=== PATIENT | male | born 1970 | race American Indian/Alaskan Native ===

== ENCOUNTER 2019-07-21 08:39 | Inpatient (IN) | payer MEDICARE ==
[2019-07-21] MEDS ORDERED: ZOFRAN IV ONE (09:18)
[2019-07-21] MEDS ORDERED: DILAUDID IV ONE ×2 (09:18→09:58)
[2019-07-21] MEDS ORDERED: LASIX IV ONE (09:19)
[2019-07-21] MEDS ORDERED: DILAUDID ONE (09:19)
[2019-07-21] MEDS ORDERED: NITRO-BID 2% TP ONE (09:19)
[2019-07-21] MEDS ORDERED: ZOFRAN ONE (09:19)
--- NOTE | 2019-07-21 09:28 | XRay Report ---
CHEST 1 VIEW INDICATION: Chest Pain. COMPARISON: None. FINDINGS: Support devices: None. Heart: Mild cardiomegaly status post previous median sternotomy. Lungs/Pleura: Mild vascular congestion with more localized infiltrate at the right lung base. Additional findings: None. IMPRESSION: 1. Mild vascular congestion. 2. Localized infiltrate right base medially suspicious for pneumonia. Signer Name: Jose Alberto Maurice MD Signed: 07/21/2019 9:24 AM Workstation Name: [id number]
[2019-07-21 09:30] LABS: Basophils # (Auto) 0.1 K/mm3 (0.0-0.1); Basophils % (Auto) 0.5 % (0.0-1.8); Eosinophils # (Auto) 0.2 K/mm3 (0.0-0.4); Eosinophils % (Auto) 1.8 % (0.0-4.3); Hematocrit 37.8 % (35.5-45.6); Hemoglobin 12.4 gm/dl (11.8-15.2); Lymphocytes # (Auto) 1.3 K/mm3 (1.2-5.4); Lymphocytes % (Auto) 10.6 % (13.4-35.0); Mean Corpuscular HGB Conc 33 % (32-34); Mean Corpuscular Volume 89 fl (84-94); Monocytes # (Auto) 0.6 K/mm3 (0.0-0.8); Monocytes % (Auto) 4.7 % (0.0-7.3); Platelet Count 205 K/mm3 (140-440); Red Blood Count 4.25 M/mm3 (3.65-5.03); Red Cell Distribution Width 15.9 % (13.2-15.2)
[2019-07-21 09:48] LABS: Alanine Aminotransferase 31 units/L (7-56); Albumin 3.7 g/dL (3.9-5); BUN/Creatinine Ratio 14; Blood Urea Nitrogen 13 mg/dL (9-20); Calcium 9.3 mg/dL (8.4-10.2); Hemolysis Index 20
[2019-07-21] MEDS ORDERED: LEVAQUIN 750MG/150ML 750 MG/150 ML BAG IV ONE (10:00)
[2019-07-21 10:02] LABS: Chol/HDL Ratio 2.26 %
--- NOTE | 2019-07-21 10:24 | Emergency Department Report ---
ED Chest Pain HPI - General Chief Complaint: Chest Pain Stated Complaint: CHEST PAIN Time Seen by Provider: 07/21/19 09:12 Source: EMS Mode of arrival: Stretcher Limitations: No Limitations - History of Present Illness Initial Comments: 49-year-old male with a past medical history diabetes, CABG 4 performed on June 25, hypertension, and elevated cholesterol presents to the Hospital complains of left-sided chest pain started last night and worse this morning. Pain is constant, sharp, worse with palpation, movement, and deep inspiration. Positive associated shortness of breath and nonproductive cough since last night. Patient has been taking his medications as instructed. Patient presented to [facility] and was subsequently transferred to [facility] his CABG surgery. 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 Severity scale (0 -10): 6 - Related Data Home Medications Medication Instructions Recorded Confirmed Last Taken Atorvastatin Calcium [Lipitor] 80 mg PO QDAY 07/21/19 07/21/19 07/21/19 Carvedilol [Coreg] 12.5 mg PO BID 07/21/19 07/21/19 07/21/19 Carvedilol [Coreg] 25 mg PO BID 07/21/19 07/21/19 07/21/19 Clopidogrel [Plavix] 75 mg PO QDAY 07/21/19 07/21/19 07/21/19 Colchicine 0.6 mg PO BID 07/21/19 07/21/19 07/21/19 Isosorbide Mononitrate 30 mg PO QDAY 07/21/19 07/21/19 07/21/19 Lisinopril [Zestril TAB] 10 mg PO QDAY 07/21/19 07/21/19 07/21/19 NIFEdipine [Nifedipine ER] 90 mg PO QDAY 07/21/19 07/21/19 07/21/19 Pantoprazole Sodium [Protonix] 40 mg PO BIDAC 07/21/19 07/21/19 07/21/19 Allergies Allergy/AdvReac Type Severity Reaction Status Date / Time acetaminophen [From Tylenol] Allergy Unknown Verified 07/21/19 08:57 aspirin Allergy Unknown Verified 07/21/19 08:57 morphine Allergy Unknown Verified 07/21/19 08:57 Heart Score - HEART Score History: Slightly suspicious EKG: Non-specific Age: 45-65 Risk factors: > 3 risk factors or hx of atherosclerotic disease Troponin: 1-3x normal limit HEART Score: 5 ED Review of Systems ROS: Stated complaint: CHEST PAIN Other details as noted in HPI Comment: All other systems reviewed and negative ED Past Medical Hx - Past Medical History Previous Medical History?: Yes Hx Hypertension: Yes Hx CVA: Yes (x2) Hx Heart Attack/AMI: Yes (2016, 2018, CABG 2018) Hx Diabetes: Yes (TYPE 2) Additional medical history: HIGH CHOLESTEROL - Surgical History Past Surgical History?: Yes Additional Surgical History: QUADRUPLE BYPASS JUN 25 2019 - Social History Smoking Status: Never Smoker Substance Use Type: None - Medications Home Medications: Home Medications Medication Instructions Recorded Confirmed Last Taken Type Atorvastatin Calcium [Lipitor] 80 mg PO QDAY 07/21/19 07/21/19 07/21/19 History Carvedilol [Coreg] 12.5 mg PO BID 07/21/19 07/21/19 07/21/19 History Carvedilol [Coreg] 25 mg PO BID 07/21/19 07/21/19 07/21/19 History Clopidogrel [Plavix] 75 mg PO QDAY 07/21/19 07/21/19 07/21/19 History Colchicine 0.6 mg PO BID 07/21/19 07/21/19 07/21/19 History Isosorbide Mononitrate 30 mg PO QDAY 07/21/19 07/21/19 07/21/19 History Lisinopril [Zestril TAB] 10 mg PO QDAY 07/21/19 07/21/19 07/21/19 History NIFEdipine [Nifedipine ER] 90 mg PO QDAY 07/21/19 07/21/19 07/21/19 History Pantoprazole Sodium [Protonix] 40 mg PO BIDAC 07/21/19 07/21/19 07/21/19 History ED Physical Exam - General Limitations: No Limitations - Other Other exam information: Normal: No acute distress Head: Atraumatic Eyes: Normal appearance, pupils equally reactive to light, extraocular movements intact ENT: Moist mucous membranes Neck: Normal appearance, no midline cervical tenderness, no meningismus Chest: Diminished breath sounds bilaterally without wheezing Cardiovascular: Regular rate and rhythm, midline sternotomy scar without erythema. Left-sided reproducible chest wall tenderness. Abdomen: Soft, nontender, nondistended, no rebound or guarding, normal bowel sounds Back: Normal inspection Extremity: Normal appearance, full range of motion, no calf tenderness or edema Neuro: Alert and oriented 3, speech normal, no gross motor sensory deficit Psych: Appropriate Skin: No rash ED Course Vital Signs 07/21/19 07/21/19 07/21/19 08:51 08:56 08:59 Temperature 99.9 F H Pulse Rate 95 H 95 H Respiratory 20 20 Rate Blood Pressure 166/97 Blood Pressure [Right] O2 Sat by Pulse 94 95 Oximetry 07/21/19 07/21/19 07/21/19 09:14 09:28 10:00 Temperature Pulse Rate 95 H 94 H 94 H Respiratory 23 20 Rate Blood Pressure 177/101 Blood Pressure 198/108 171/113 [Right] O2 Sat by Pulse 94 93 Oximetry 07/21/19 07/21/19 10:16 10:56 Temperature Pulse Rate 94 H 100 H Respiratory 25 H 16 Rate Blood Pressure Blood Pressure 183/126 167/95 [Right] O2 Sat by Pulse 94 96 Oximetry - Consultations Consultation #1: 07/21/19 10:15 cardiology evaluated pt in ed. Katiuska Donaldson 07/21/19 10:27 cards will decide if heparin is indicated. Pt is allergic to asa MILTON score - [place] Score Age > 65: (0) No Aspirin use within the Past 7 Days: (0) No 3 or more CAD Risk Factors: (1) Yes 2 or more Angina events in past 24 hrs: (1) Yes Known CAD with more than 50% Stenosis: (1) Yes Elevated Cardiac Markers: (1) Yes ST Deviation Greater than 0.5mm: (0) No MILTON Score: 4 ED Medical Decision Making - Lab Data Result diagrams: 07/21/19 09:11 07/21/19 09:11 Lab Results 07/21/19 07/21/19 07/21/19 Range/Units 09:11 09:11 09:11 WBC 12.6 H (4.5-11.0) K/mm3 RBC 4.25 (3.65-5.03) M/mm3 Hgb 12.4 (11.8-15.2) gm/dl Hct 37.8 (35.5-45.6) % MCV 89 (84-94) fl MCH 29 (28-32) pg MCHC 33 (32-34) % RDW 15.9 H (13.2-15.2) % Plt Count 205 (140-440) K/mm3 Lymph % (Auto) 10.6 L (13.4-35.0) % [place] % (Auto) 4.7 (0.0-7.3) % Eos % (Auto) 1.8 (0.0-4.3) % Baso % (Auto) 0.5 (0.0-1.8) % Lymph # 1.3 (1.2-5.4) K/mm3 [place] # 0.6 (0.0-0.8) K/mm3 Eos # 0.2 (0.0-0.4) K/mm3 Baso # 0.1 (0.0-0.1) K/mm3 Seg Neutrophils % 82.4 H (40.0-70.0) % Seg Neutrophils # 10.4 H (1.8-7.7) K/mm3 PT 12.9 (12.2-14.9) Sec. INR 1.00 (0.87-1.13) Sodium 143 (137-145) mmol/L Potassium 4.1 (3.6-5.0) mmol/L Chloride 105.8 (98-107) mmol/L Carbon Dioxide 25 (22-30) mmol/L Anion Gap 16 mmol/L BUN 13 (9-20) mg/dL Creatinine 0.9 (0.8-1.5) mg/dL Estimated GFR > 60 ml/min BUN/Creatinine Ratio 14 % Glucose 151 H (75-100) mg/dL Calcium 9.3 (8.4-10.2) mg/dL Total Bilirubin 0.50 (0.1-1.2) mg/dL AST 27 (5-40) units/L ALT 31 (7-56) units/L Alkaline Phosphatase 147 H (35-129) units/L Troponin T (0.00-0.029) ng/mL Total Protein 6.9 (6.3-8.2) g/dL Albumin 3.7 L (3.9-5) g/dL Albumin/Globulin Ratio 1.2 % Triglycerides (2-149) mg/dL Cholesterol (50-199) mg/dL LDL Cholesterol Direct (50-130) mg/dL HDL Cholesterol (40-59) mg/dL Cholesterol/HDL Ratio % 07/21/19 Range/Units 09:11 WBC (4.5-11.0) K/mm3 RBC (3.65-5.03) M/mm3 Hgb (11.8-15.2) gm/dl Hct (35.5-45.6) % MCV (84-94) fl MCH (28-32) pg MCHC (32-34) % RDW (13.2-15.2) % Plt Count (140-440) K/mm3 Lymph % (Auto) (13.4-35.0) % [place] % (Auto) (0.0-7.3) % Eos % (Auto) (0.0-4.3) % Baso % (Auto) (0.0-1.8) % Lymph # (1.2-5.4) K/mm3 [place] # (0.0-0.8) K/mm3 Eos # (0.0-0.4) K/mm3 Baso # (0.0-0.1) K/mm3 Seg Neutrophils % (40.0-70.0) % Seg Neutrophils # (1.8-7.7) K/mm3 PT (12.2-14.9) Sec. INR (0.87-1.13) Sodium (137-145) mmol/L Potassium (3.6-5.0) mmol/L Chloride (98-107) mmol/L Carbon Dioxide (22-30) mmol/L Anion Gap mmol/L BUN (9-20) mg/dL Creatinine (0.8-1.5) mg/dL Estimated GFR ml/min BUN/Creatinine Ratio % Glucose (75-100) mg/dL Calcium (8.4-10.2) mg/dL Total Bilirubin (0.1-1.2) mg/dL AST (5-40) units/L ALT (7-56) units/L Alkaline Phosphatase (35-129) units/L Troponin T 0.131 H* (0.00-0.029) ng/mL Total Protein (6.3-8.2) g/dL Albumin (3.9-5) g/dL Albumin/Globulin Ratio % Triglycerides 74 (2-149) mg/dL Cholesterol 127 (50-199) mg/dL LDL Cholesterol Direct 75 (50-130) mg/dL HDL Cholesterol 56 (40-59) mg/dL Cholesterol/HDL Ratio 2.26 % - EKG Data -: EKG Interpreted by Me EKG shows normal: sinus rhythm, axis (qrs -29), QRS complexes (qrsd 100), ST-T waves (lat t inv) Rate: normal (94) - EKG Data When compared to previous EKG there are: previous EKG unavailable - Radiology Data Radiology results: report reviewed CHEST 1 VIEW INDICATION: Chest Pain. COMPARISON: None. FINDINGS: Support devices: None. Heart: Mild cardiomegaly status post previous median sternotomy. Lungs/Pleura: Mild vascular congestion with more localized infiltrate at the right lung base. Additional findings: None. IMPRESSION: 1. Mild vascular congestion. 2. Localized infiltrate right base medially suspicious for pneumonia. - Medical Decision Making Radiologist report as infiltrate. I highly suspect that findings are present fluids/pulmonary edema. Patient given Lasix 80 mg 1. He also received Nitropaste for blood pressure control and CHF as well as Dilaudid and Zofran for reproducible anterior left-sided chest pain. Cardiology came to evaluate patient in the ED. They will determine if heparin is necessary. pt was covered with levaquin and cultures sent due to radiology read of infiltrate - Differential Diagnosis Franky syndrome, [place], postop infection, MSK pain, CHF, pneumonia Critical Care Time: No Critical care attestation.: If time is entered above; I have spent that time in minutes in the direct care of this critically ill patient, excluding procedure time. ED Disposition Clinical Impression: Chest pain, S/P CABG x 4, Chest wall tenderness, Elevated troponin, CHF exacerbation Disposition: -09 OP ADMIT IP TO THIS HOSP Is pt being admited?: Yes Condition: Stable Instructions: Chest Pain (ED) Time of Disposition: 10:24 (Dr freitas/Deirdre)
--- NOTE | 2019-07-21 10:49 | History and Physical Report ---
History of Present Illness Date of examination: 07/21/19 Date of admission: 07/21/19 Chief complaint: Chest pain History of present illness: 49-year-old male with a past medical history diabetes, CABG 4 performed on June 25, hypertension, and HLD presented to the Hospital complains of left- sided chest pain started last night and worse this morning. Pain is constant, sharp, worse with palpation, movement, and deep inspiration, associated shortness of breath and nonproductive cough since last night. Patient has been taking all his medications as instructed. 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 In the ER his CE was elevated, placed on heparin drip and admitted for further evaluation and mx. Past History Past Medical History: CAD, diabetes, hypertension, hyperlipidemia, stroke, other (sleep apnea) Past Surgical History: CABG Social history: denies: smoking, alcohol abuse, prescription drug abuse Family History: Positive for HD and HTN Review of Systems Constitutional: fever, chills, no weight loss, no weight gain Ears, nose, mouth and throat: no ear pain, no nose pain, no sinus pressure, no sinus pain Cardiovascular: chest pain, shortness of breath, dyspnea on exertion, high blood pressure, no orthopnea, no palpitations, no rapid/irregular heart beat, no edema, no syncope, no lightheadedness, no leg edema Respiratory: cough, cough with sputum, shortness of breath, dyspnea on exertion, pain on inspiration, no congestion, no wheezing Gastrointestinal: no abdominal pain, no nausea, no vomiting, no diarrhea, no constipation, no change in bowel habits Genitourinary Male: no dysuria, no hematuria, no flank pain, no discharge, no urinary frequency, no urinary hesitancy Musculoskeletal: no neck stiffness, no neck pain, no shooting arm pain, no arm numbness/tingling, no low back pain, no shooting leg pain Integumentary: wounds (sternotomy scar ), no rash, no pruritis, no redness, no sores Neurological: no head injury, no paralysis, no weakness, no parathesias, no numbness, no tingling, no seizures, no syncope Psychiatric: no anxiety Endocrine: no cold intolerance, no heat intolerance Hematologic/Lymphatic: no easy bruising, no easy bleeding Allergic/Immunologic: no wheezing Medications and Allergies Allergies Allergy/AdvReac Type Severity Reaction Status Date / Time acetaminophen [From Tylenol] Allergy Unknown Verified 07/21/19 08:57 aspirin Allergy Unknown Verified 07/21/19 08:57 morphine Allergy Unknown Verified 07/21/19 08:57 Home Medications Medication Instructions Recorded Confirmed Last Taken Type Atorvastatin Calcium [Lipitor] 80 mg PO QDAY 07/21/19 07/21/19 07/21/19 History Carvedilol [Coreg] 12.5 mg PO BID 07/21/19 07/21/19 07/21/19 History Carvedilol [Coreg] 25 mg PO BID 07/21/19 07/21/19 07/21/19 History Clopidogrel [Plavix] 75 mg PO QDAY 07/21/19 07/21/19 07/21/19 History Colchicine 0.6 mg PO BID 07/21/19 07/21/19 07/21/19 History Isosorbide Mononitrate 30 mg PO QDAY 07/21/19 07/21/19 07/21/19 History Lisinopril [Zestril TAB] 10 mg PO QDAY 07/21/19 07/21/19 07/21/19 History NIFEdipine [Nifedipine ER] 90 mg PO QDAY 07/21/19 07/21/19 07/21/19 History Pantoprazole Sodium [Protonix] 40 mg PO BIDAC 07/21/19 07/21/19 07/21/19 History Active Meds: Active Medications Levofloxacin/Dextrose (Levaquin 750mg/150ml) 750 mg in 150 mls @ 100 mls/hr IV ONCE ONE Stop: 07/21/19 11:29 Last Admin: 07/21/19 10:25 Dose: 100 mls/hr Documented by: Exam - Physical Exam Narrative exam: General appearance: other (anxious, uncomfortable) HEENT: Positive: PERRL Neck: Positive: neck supple, trachea midline Cardiac: Positive: Reg Rate and Rhythm, S1/S2 Lungs: Positive: Decreased Breath Sounds Neuro: Positive: Grossly Intact Abdomen: Positive: Soft. Negative: Tender Skin: Negative: Rash Incision: Incision Site (sternotomy scar appears c/d/i, well approximated) Musculoskeletal: No Pain Extremities: Absent: edema - Constitutional Vitals: Temp Pulse Resp BP Pulse Ox 99.9 F H 94 H 25 H 183/126 94 07/21/19 08:51 07/21/19 10:16 07/21/19 10:16 07/21/19 10:16 07/21/19 10:16 Results - Labs CBC & Chem 7: 07/23/19 05:36 07/22/19 07:03 Labs: Abnormal lab results 07/21/19 07/21/19 07/21/19 Range/Units 09:11 09:11 09:11 WBC 12.6 H (4.5-11.0) K/mm3 RDW 15.9 H (13.2-15.2) % Lymph % (Auto) 10.6 L (13.4-35.0) % Seg Neutrophils % 82.4 H (40.0-70.0) % Seg Neutrophils # 10.4 H (1.8-7.7) K/mm3 Glucose 151 H (75-100) mg/dL Alkaline Phosphatase 147 H (35-129) units/L Troponin T 0.131 H* (0.00-0.029) ng/mL Albumin 3.7 L (3.9-5) g/dL - Imaging and Cardiology Chest x-ray: report reviewed Assessment and Plan NSTEMI type 1 vs 2 - treat with NSTEMI protocol for now - heparin drip, plavix, statin - cardiology consulted, 2d echo CAD h/o recent CABG - will cont home meds, review medical record from [facility] HTN, cont coreg, nefidipine HLD, cont statin H/o CVA - cont aspirin statin Dvt Px, on heparin drip
[2019-07-21] MEDS ORDERED: MORPHINE IV PRN (10:51)
[2019-07-21] MEDS ORDERED: SODIUM CHLORIDE FLUSH SYRINGE 10 ML IV PRN (10:51)
--- NOTE | 2019-07-21 11:28 | Consultation ---
History of Present Illness Consult date: 07/21/19 Requesting physician: HANNAH GILL Consult reason: chest pain, elevated troponin History of present illness: The pt is a 49-year-old male with a past medical history CAD, AMI (2016 and 2018 with C but no stents deployed), AMI with CABG x 4 (tx from [facility] to [facility]) at [facility] on 06/25/2019, HTN, DM, HLP, CVA x 2 (over 10 years ago), RAVIN (noncompliant with CPAP). He states he regularly follows a c ardiologist in [facility]. He presented with c/o left-sided chest pain and SOB which started last night and has progressively worsened overnight. Pt describes his pain as a constant stabbing pain which is aggravated by palpation of the left chest, movement and deep inspiration. Positive associated shortness of breath and nonproductive cough since last night. Pt also reports that he was febrile overnight with T Max 102. Patient has been taking his medications as instructed. He states that prior to yesterday, he has been feeling well and has been exercising regularly. He denies any palpitations, n/v, dizziness or syncope. On evaluation, he appears uncomfortable and anxious. His sternotomy sca r appears c/d/i, well approximated. BPs are elevated. Pt's home medications are present at bedside - he was prescribed colchicine BID, he is unsure why he is taking this medication, he denies any h/o gout - ? pericarditis. Past History Past Medical History: CAD, diabetes, hypertension, hyperlipidemia, stroke, other (sleep apnea) Past Surgical History: CABG Social history: denies: smoking, alcohol abuse, prescription drug abuse Medications and Allergies Allergies Allergy/AdvReac Type Severity Reaction Status Date / Time acetaminophen [From Tylenol] Allergy Unknown Verified 07/21/19 08:57 aspirin Allergy Unknown Verified 07/21/19 08:57 morphine Allergy Unknown Verified 07/21/19 08:57 Home Medications Medication Instructions Recorded Confirmed Last Taken Type Atorvastatin Calcium [Lipitor] 80 mg PO QDAY 07/21/19 07/21/19 07/21/19 History Carvedilol [Coreg] 12.5 mg PO BID 07/21/19 07/21/19 07/21/19 History Carvedilol [Coreg] 25 mg PO BID 07/21/19 07/21/19 07/21/19 History Clopidogrel [Plavix] 75 mg PO QDAY 07/21/19 07/21/19 07/21/19 History Colchicine 0.6 mg PO BID 07/21/19 07/21/19 07/21/19 History Isosorbide Mononitrate 30 mg PO QDAY 07/21/19 07/21/19 07/21/19 History Lisinopril [Zestril TAB] 10 mg PO QDAY 07/21/19 07/21/19 07/21/19 History NIFEdipine [Nifedipine ER] 90 mg PO QDAY 07/21/19 07/21/19 07/21/19 History Pantoprazole Sodium [Protonix] 40 mg PO BIDAC 07/21/19 07/21/19 07/21/19 History Active Meds: Active Medications Aspirin (Aspirin) 325 mg PO QDAY [facility] Atorvastatin Calcium (Lipitor) 40 mg PO QHS [facility] Carvedilol (Coreg) 12.5 mg PO BID [facility] Clopidogrel Bisulfate (Plavix) 75 mg PO QDAY [facility] Colchicine (Colchicine) 0.6 mg PO BID [facility] Levofloxacin/Dextrose (Levaquin 750mg/150ml) 750 mg in 150 mls @ 100 mls/hr IV ONCE ONE Stop: 07/21/19 11:29 Last Admin: 07/21/19 10:25 Dose: 100 mls/hr Documented by: Lisinopril (Zestril) 10 mg PO QDAY [facility] Miscellaneous Medication (Atorvastatin Calcium [Lipitor]) 80 mg PO QDAY [facility] Miscellaneous Medication (Isosorbide Mononitrate) 30 mg PO QDAY [facility] Miscellaneous Medication (Nifedipine [Nifedipine Er]) 90 mg PO QDAY [facility] Miscellaneous Medication (Pantoprazole Sodium [Protonix]) 40 mg PO BIDAC [facility] Morphine Sulfate (Morphine) 2 mg IV Q5MIN PRN PRN Reason: Chest Pain Nitroglycerin (Nitro-Bid 2%) 0.5 inch TP TIDNTG [facility]; Protocol Sodium Chloride (Sodium Chloride Flush Syringe 10 Ml) 10 ml IV PRN PRN PRN Reason: LINE FLUSH Review of Systems Constitutional: fever, chills, no weight loss, no weight gain Ears, nose, mouth and throat: no ear pain, no nose pain, no sinus pressure, no sinus pain Cardiovascular: chest pain, shortness of breath, dyspnea on exertion, high blood pressure, no orthopnea, no palpitations, no rapid/irregular heart beat, no edema, no syncope, no lightheadedness, no leg edema Respiratory: cough, cough with sputum, shortness of breath, dyspnea on exertion, pain on inspiration, no congestion, no wheezing Gastrointestinal: no abdominal pain, no nausea, no vomiting, no diarrhea, no constipation, no change in bowel habits Genitourinary Male: no dysuria, no hematuria, no flank pain, no discharge, no urinary frequency, no urinary hesitancy Musculoskeletal: no neck stiffness, no neck pain, no shooting arm pain, no arm numbness/tingling, no low back pain, no shooting leg pain Integumentary: wounds (sternotomy scar ), no rash, no pruritis, no redness, no sores Neurological: no head injury, no paralysis, no weakness, no parathesias, no numbness, no tingling, no seizures, no syncope Psychiatric: no anxiety Endocrine: no cold intolerance, no heat intolerance Hematologic/Lymphatic: no easy bruising, no easy bleeding Allergic/Immunologic: no wheezing Physical Examination Vital Signs Temp Pulse Resp BP Pulse Ox 99.9 F H 95 H 20 166/97 94 07/21/19 08:51 07/21/19 08:51 07/21/19 08:51 07/21/19 08:51 07/21/19 08:51 General appearance: other (anxious, uncomfortable) HEENT: Positive: PERRL Neck: Positive: neck supple, trachea midline Cardiac: Positive: Reg Rate and Rhythm, S1/S2 Lungs: Positive: Decreased Breath Sounds Neuro: Positive: Grossly Intact Abdomen: Positive: Soft. Negative: Tender Skin: Negative: Rash Incision: Incision Site (sternotomy scar appears c/d/i, well approximated) Musculoskeletal: No Pain Extremities: Absent: edema Results 07/21/19 09:11 07/21/19 09:11 Cardiac Enzymes 07/21/19 Range/Units 09:11 AST 27 (5-40) units/L Coagulation 07/21/19 Range/Units 09:11 PT 12.9 (12.2-14.9) Sec. INR 1.00 (0.87-1.13) Lipids 07/21/19 Range/Units 09:11 Triglycerides 74 (2-149) mg/dL Cholesterol 127 (50-199) mg/dL HDL Cholesterol 56 (40-59) mg/dL Cholesterol/HDL Ratio 2.26 % CBC 07/21/19 Range/Units 09:11 WBC 12.6 H (4.5-11.0) K/mm3 RBC 4.25 (3.65-5.03) M/mm3 Hgb 12.4 (11.8-15.2) gm/dl Hct 37.8 (35.5-45.6) % Plt Count 205 (140-440) K/mm3 Lymph # 1.3 (1.2-5.4) K/mm3 Motley # 0.6 (0.0-0.8) K/mm3 Eos # 0.2 (0.0-0.4) K/mm3 Baso # 0.1 (0.0-0.1) K/mm3 Comprehensive Metabolic Panel 07/21/19 Range/Units 09:11 Sodium 143 (137-145) mmol/L Potassium 4.1 (3.6-5.0) mmol/L Chloride 105.8 (98-107) mmol/L Carbon Dioxide 25 (22-30) mmol/L BUN 13 (9-20) mg/dL Creatinine 0.9 (0.8-1.5) mg/dL Glucose 151 H (75-100) mg/dL Calcium 9.3 (8.4-10.2) mg/dL AST 27 (5-40) units/L ALT 31 (7-56) units/L Alkaline Phosphatase 147 H (35-129) units/L Total Protein 6.9 (6.3-8.2) g/dL Albumin 3.7 L (3.9-5) g/dL - Imaging and Cardiology Echo: pending EKG: report reviewed, image reviewed EKG interpretations - Telemetry EKG Rhythm: Sinus Rhythm - EKG Sinus rhythms and dysrhythmias: sinus rhythm Repolarization changes or abnormalities: ST or T wave suggestive of ischemia (lateral t-wave inversions) Assessment and Plan Pt presented with c/o left-sided chest pain and SOB since last night. Pt describes his pain as a constant stabbing pain which is aggravated by palpation of the left chest, movement and deep inspiration. Positive associated shortness of breath and nonproductive cough since last night. Pt also reports that he was febrile overnight with T Max 102. Pt is s/p CABG x 4 (tx from [facility] to [facility]) at [facility] on 06/25/2019. Pt's home medications includes colchicine BID, he is unsure why he is taking this medication, he denies any h/o gout - ? pericarditis. 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 Obtain echo and cont IV diuretics. First troponin is elevated - suspect NSTEMI type II. ECG shows SR with t-wave inversions in lateral leads. Will cont to trend Gavin and if trending upwards will initiate heparin gtt. F/u ECG in AM. Resume home cardiac regimen. Further recs to follow per hospital course. The patient has been seen in conjunction with Dr. Francisco who agrees with the assessment and plan of care. 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 (2) Chest pain Current Visit: Yes Status: Acute (3) Chest wall tenderness Current Visit: Yes Status: Acute (4) NSTEMI (non-ST elevated myocardial infarction) Current Visit: Yes Status: Acute Plan to address problem: suspect type II (5) Acute heart failure Current Visit: Yes Status: Acute (6) Fever Current Visit: Yes Status: Acute (7) CAD (coronary artery disease) Current Visit: Yes Status: Chronic (8) S/P CABG x 4 Current Visit: Yes Status: Chronic (9) HTN (hypertension) Current Visit: Yes Status: Chronic (10) Diabetes Current Visit: Yes Status: Chronic (11) Hyperlipidemia Current Visit: Yes Status: Chronic (12) History of CVA (cerebrovascular accident) Current Visit: Yes Status: Chronic (13) Sleep apnea Current Visit: Yes Status: Chronic (14) Abnormal ECG Current Visit: Yes Status: Acute
[2019-07-21] MEDS ORDERED: NON-FORMULARY (Pantoprazole Sodium [Protonix] 40 MG) PO SCH (11:30)
[2019-07-21] MEDS ORDERED: TORADOL IV ONE (11:39)
[2019-07-21] MEDS ORDERED: HEPARIN 10,000 UNITS/10 ML IV ONE (13:20)
[2019-07-21] MEDS: NITRO-BID 2% TP SCH ×2 (14:13→18:14)
[2019-07-21] MEDS: PROTONIX PO SCH ×2 (14:22→21:21)
[2019-07-21 15:01] LABS: INR 1.02 (0.87-1.13); Partial Thromboplastin Time 26.2 Sec. (24.2-36.6)
[2019-07-21] MEDS: DILAUDID IV PRN ×3 (15:09→21:18)
[2019-07-21 15:37] LABS: Hemoglobin 11.8 gm/dl (11.8-15.2)
[2019-07-21] MEDS: HEPARIN/ 0.45% NACL-25,000 UNIT/500 ML 25,000 UNIT/500 ML BAG IV SCH (15:49)
[2019-07-21] MEDS: LASIX IV SCH (18:13)
[2019-07-21] MEDS: COREG PO SCH (21:15)
[2019-07-21] MEDS: COLCHICINE PO SCH (21:17)
[2019-07-22] MEDS: DILAUDID IV PRN ×7 (00:27→23:24)
[2019-07-22] MEDS: NITRO-BID 2% TP SCH ×3 (06:50→18:16)
[2019-07-22] MEDS: LASIX IV SCH ×2 (06:50→18:12)
[2019-07-22 07:47] LABS: BUN/Creatinine Ratio 12; Blood Urea Nitrogen 11 mg/dL (9-20); Calcium 9.3 mg/dL (8.4-10.2); Hemolysis Index 6
[2019-07-22] MEDS: COREG PO SCH ×2 (09:47→21:36)
[2019-07-22] MEDS: PROTONIX PO SCH ×2 (09:47→21:36)
[2019-07-22] MEDS: ZESTRIL PO SCH (09:47)
[2019-07-22] MEDS: PROCARDIA XL PO SCH (09:49)
[2019-07-22] MEDS: COLCHICINE PO SCH ×2 (09:49→21:36)
[2019-07-22] MEDS: IMDUR PO SCH (09:49)
[2019-07-22] MEDS: PLAVIX PO SCH (09:49)
[2019-07-22] MEDS ORDERED: NON-FORMULARY (Nifedipine [Nifedipine Er] 90 MG) PO SCH (10:00)
[2019-07-22] MEDS ORDERED: NON-FORMULARY (Atorvastatin Calcium [Lipitor] 80 MG) PO SCH (10:00)
[2019-07-22] MEDS ORDERED: ASPIRIN PO SCH (10:00)
[2019-07-22] MEDS ORDERED: NON-FORMULARY (Isosorbide Mononitrate 30 MG) PO SCH (10:00)
--- NOTE | 2019-07-22 12:05 | Nuclear Medicine Report ---
VENTILATION PERFUSION PULMONARY SCINTIGRAPHY HISTORY: Chest pain, evaluate for pulmonary embolus COMPARISON: 07/21/2019 at 0902 hours chest radiograph. TECHNIQUE: Radiopharmaceutical was inhaled. Tc-99m-MAA was then injected. Ventilation and perfusion images were acquired. RADIOPHARMACEUTICAL: 16.0 mCi of Xe-133 inhaled 4.8 mCi of Tc-99m-MAA injected FINDINGS: VENTILATION: There is mild air trapping in both lower lung zones consistent with mild obstructive pul monary disease. PERFUSION: No significant segmental or non-segmental defect. Additional Findings: None. IMPRESSION: 1. Low probability for pulmonary embolism. Signer Name: Jaime White Jr, MD Signed: 07/22/2019 12:00 PM Workstation Name: [id number]
--- NOTE | 2019-07-22 12:21 | Progress Note ---
Assessment and Plan Echo reviewed - EF 40-45%, restrictive diastolic filling, mild MR, RVSP 27mmHg. Pt states chest pain is nearly resolved. V/Q scan done today was low prob for PE. CE elevation appears c/w NSTEMI type II. No plans for ischemic evaluation at this time. Will continue IV heparin x 48Hr per protocol. Cont present cardiac management. IV abx for suspected PNA per primary. F/u CXR in AM. The patient has been seen in conjunction with Dr. Francisco who agrees with the assessment and plan of care. - Patient Problems (1) Acute HFrEF (heart failure with reduced ejection fraction) Current Visit: Yes Status: Acute (2) Chest pain Current Visit: Yes Status: Acute (3) Chest wall tenderness Current Visit: Yes Status: Acute (4) NSTEMI (non-ST elevated myocardial infarction) Current Visit: Yes Status: Acute Plan to address problem: suspect type II (5) Pneumonia Current Visit: Yes Status: Suspected (6) Fever Current Visit: Yes Status: Acute (7) CAD (coronary artery disease) Current Visit: Yes Status: Chronic (8) S/P CABG x 4 Current Visit: Yes Status: Chronic (9) HTN (hypertension) Current Visit: Yes Status: Chronic (10) Diabetes Current Visit: Yes Status: Chronic (11) Hyperlipidemia Current Visit: Yes Status: Chronic (12) History of CVA (cerebrovascular accident) Current Visit: Yes Status: Chronic (13) Sleep apnea Current Visit: Yes Status: Chronic (14) Abnormal ECG Current Visit: Yes Status: Acute Subjective Date of service: 07/22/19 Principal diagnosis: cp Interval history: pt resting in bed, states chest pain has nearly resolved. c/o BLE pain r/t CABG graft sites. in SR. Objective Last Vital Signs Temp 98.3 F 07/22/19 04:11 Pulse 82 07/22/19 06:50 Resp 18 07/22/19 04:11 BP 129/87 07/22/19 06:50 Pulse Ox 94 07/22/19 04:11 - Physical Examination General: No Apparent Distress HEENT: Positive: PERRL Neck: Positive: neck supple, trachea midline Cardiac: Positive: Reg Rate and Rhythm, S1/S2 Lungs: Positive: Decreased Breath Sounds Neuro: Positive: Grossly Intact Abdomen: Positive: Soft. Negative: Tender Skin: Negative: Rash Incision: Incision Site (sternotomy scar appears c/d/i, well approximated) Musculoskeletal: No Pain Extremities: Absent: edema - Labs and Meds Coagulation 07/21/19 Range/Units 10:24 PT 13.1 (12.2-14.9) Sec. INR 1.02 (0.87-1.13) APTT 26.2 (24.2-36.6) Sec. CBC 07/21/19 Range/Units 15:23 Hgb 11.8 (11.8-15.2) gm/dl Hct 36.0 (35.5-45.6) % Plt Count 222 (140-440) K/mm3 Comprehensive Metabolic Panel 07/22/19 Range/Units 07:03 Sodium 140 (137-145) mmol/L Potassium 3.9 (3.6-5.0) mmol/L Chloride 99.8 (98-107) mmol/L Carbon Dioxide 29 (22-30) mmol/L BUN 11 (9-20) mg/dL Creatinine 0.9 (0.8-1.5) mg/dL Glucose 160 H (75-100) mg/dL Calcium 9.3 (8.4-10.2) mg/dL - Imaging and Cardiology EKG: report reviewed, image reviewed Echo: report reviewed - Telemetry EKG Rhythm: Sinus Rhythm - EKG Sinus rhythms and dysrhythmias: sinus rhythm Repolarization changes or abnormalities: ST or T wave suggestive of ischemia (lateral t-wave inversions)
--- NOTE | 2019-07-22 14:55 | Progress Note ---
Assessment and Plan NSTEMI type 2, likely - treat with NSTEMI protocol for now with heparin for 48h - cont plavix, statin - cardiology consulted, - Echo reviewed - EF 40-45%, restrictive diastolic filling, mild MR, RVSP 27mmHg. - V/Q scan done today was low prob for PE. - No plans for ischemic evaluation at this time. CAD h/o recent CABG - will cont home meds, HTN, cont coreg, nefidipine HLD, cont statin h/o CVA - cont plavix, statin Dvt Px, on heparin drip Subjective Date of service: 07/22/19 Principal diagnosis: cp Interval history: Patient seen and examined cont c/o chest pain, no SOB Objective - Exam Narrative Exam: General appearance: other (anxious, uncomfortable) HEENT: Positive: PERRL Neck: Positive: neck supple, trachea midline Cardiac: Positive: Reg Rate and Rhythm, S1/S2 Lungs: Positive: Decreased Breath Sounds Neuro: Positive: Grossly Intact Abdomen: Positive: Soft. Negative: Tender Skin: Negative: Rash Incision: Incision Site (sternotomy scar appears c/d/i, well approximated) Musculoskeletal: No Pain Extremities: Absent: edema - Constitutional Vitals: Vital Signs - 12hr 07/22/19 07/22/19 07/22/19 03:00 04:11 06:50 Temperature 98.3 F Pulse Rate 96 H 85 82 Respiratory 18 Rate Blood Pressure 129/87 129/87 O2 Sat by Pulse 94 Oximetry 07/22/19 07/22/19 07:25 12:48 Temperature 98.5 F Pulse Rate 93 H Respiratory 16 Rate Blood Pressure 144/95 O2 Sat by Pulse 97 95 Oximetry - Labs CBC & Chem 7: 07/23/19 05:36 07/22/19 07:03 Labs: Abnormal lab results 07/21/19 07/21/19 07/21/19 Range/Units 10:24 15:23 22:48 D-Dimer 973.70 H (0-234) ng/mlDDU Heparin Anti-Xa Level 0.18 L (0.3-0.7) U.I./ml Glucose (75-100) mg/dL Troponin T 0.119 H* (0.00-0.029) ng/mL 07/22/19 07/22/19 07/22/19 Range/Units 07:03 13:42 Unknown D-Dimer (0-234) ng/mlDDU Heparin Anti-Xa Level < 0.10 L 0.25 L (0.3-0.7) U.I./ml Glucose 160 H (75-100) mg/dL Troponin T (0.00-0.029) ng/mL
[2019-07-22] MEDS: HEPARIN/ 0.45% NACL-25,000 UNIT/500 ML 25,000 UNIT/500 ML BAG IV SCH (16:22)
[2019-07-22] MEDS ORDERED: HEPARIN 10,000 UNITS/10 ML IV ONE (16:53)
[2019-07-22] MEDS ORDERED: ZOFRAN IV PRN (23:33)
[2019-07-22] MEDS ORDERED: PERCOCET 5/325 PO PRN (23:37)
[2019-07-23] MEDS: DILAUDID IV PRN ×5 (03:00→23:30)
[2019-07-23] MEDS: LASIX IV SCH (05:47)
[2019-07-23] MEDS: NITRO-BID 2% TP SCH ×3 (05:48→18:37)
[2019-07-23 05:52] LABS: Hematocrit 41.3 % (35.5-45.6); Hemoglobin 13.6 gm/dl (11.8-15.2)
[2019-07-23] MEDS: HEPARIN/ 0.45% NACL-25,000 UNIT/500 ML 25,000 UNIT/500 ML BAG IV SCH (07:01)
--- NOTE | 2019-07-23 08:26 | XRay Report ---
CHEST 1 VIEW INDICATION: Shortness of breath, pneumonia. COMPARISON: 07/21/2019 FINDINGS: Support devices: None. Heart: Heart size is within normal limits and slightly decreased since the exam 2 days ago. CABG kaur ges are noted. Lungs/Pleura: The lungs are clear. Pulmonary venous congestion has resolved. No pleural effusion or p neumothorax. Additional findings: None. IMPRESSION: Normal chest x-ray. Mild volume overload has resolved since 2 days ago. No pneumonia. Signer Name: Jaime White Jr, MD Signed: 07/23/2019 8:21 AM Workstation Name: [id number]
[2019-07-23] MEDS ORDERED: VANCOMYCIN/NS 1 GM/250 ML 1 GM/250 ML BAG IV SCH (09:00)
[2019-07-23] MEDS ORDERED: VANCOMYCIN 1,500 MG in NACL 0.9% 500 ML 500 ML IV ONE (09:00)
--- NOTE | 2019-07-23 10:30 | Progress Note ---
Assessment and Plan Currently stable cardiac status. Pt reports resolution of cp. F/u CXR today improved, no PNA. D/c heparin gtt. Pt may discharge home from cardiology standpoint on home cardiac regimen. 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 Pt verbalizes understanding. The patient has been seen in conjunction with Dr. Francisco who agrees with the assessment and plan of care. - Patient Problems (1) Acute HFrEF (heart failure with reduced ejection fraction) Current Visit: Yes Status: Acute (2) Chest pain Current Visit: Yes Status: Resolved (3) Chest wall tenderness Current Visit: Yes Status: Resolved (4) NSTEMI (non-ST elevated myocardial infarction) Current Visit: Yes Status: Acute Plan to address problem: suspect type II (5) Fever Current Visit: Yes Status: Resolved (6) CAD (coronary artery disease) Current Visit: Yes Status: Chronic (7) S/P CABG x 4 Current Visit: Yes Status: Chronic (8) HTN (hypertension) Current Visit: Yes Status: Chronic (9) Diabetes Current Visit: Yes Status: Chronic (10) Hyperlipidemia Current Visit: Yes Status: Chronic (11) History of CVA (cerebrovascular accident) Current Visit: Yes Status: Chronic (12) Sleep apnea Current Visit: Yes Status: Chronic (13) Abnormal ECG Current Visit: Yes Status: Acute Subjective Date of service: 07/23/19 Principal diagnosis: cp Interval history: pt resting in bed, states he is feeling much better, no chest pain. in SR. Objective Last Vital Signs Temp 98.6 F 07/23/19 08:28 Pulse 89 07/23/19 04:20 Resp 22 07/23/19 08:28 BP 118/89 07/23/19 08:00 Pulse Ox 97 07/23/19 08:28 - Physical Examination General: No Apparent Distress HEENT: Positive: PERRL Neck: Positive: neck supple, trachea midline Cardiac: Positive: Reg Rate and Rhythm, S1/S2 Lungs: Positive: Decreased Breath Sounds Neuro: Positive: Grossly Intact Abdomen: Positive: Soft. Negative: Tender Skin: Negative: Rash Incision: Incision Site (sternotomy scar appears c/d/i, well approximated) Musculoskeletal: No Pain Extremities: Absent: edema - Labs and Meds CBC 07/23/19 Range/Units 05:36 Hgb 13.6 (11.8-15.2) gm/dl Hct 41.3 (35.5-45.6) % Plt Count 241 (140-440) K/mm3 - Imaging and Cardiology EKG: report reviewed, image reviewed Echo: report reviewed (EF 40-45%, restrictive diastolic filling, mild MR, RVSP 27mmHg. ) - Telemetry EKG Rhythm: Sinus Rhythm - EKG Sinus rhythms and dysrhythmias: sinus rhythm Repolarization changes or abnormalities: ST or T wave suggestive of ischemia (lateral t-wave inversions)
[2019-07-23] MEDS: PROCARDIA XL PO SCH (11:59)
--- NOTE | 2019-07-23 13:22 | Progress Note ---
Assessment and Plan bacteremia - start on Vanc, repeat Cx - not sure if this is contamination NSTEMI type 2, likely - treat with NSTEMI protocol for now with heparin for 48h - cont plavix, statin - cardiology consulted, - Echo reviewed - EF 40-45%, restrictive diastolic filling, mild MR, RVSP 27mmHg. - V/Q scan done today was low prob for PE. - No plans for ischemic evaluation at this time. Acute HFrEF (heart failure with reduced ejection fraction) with pulmonary congestion, POA - repeat cxr today normal, cont current meds, daily wt, ins/os CAD h/o recent CABG - will cont home meds, HTN, cont coreg, nefidipine HLD, cont statin h/o CVA - cont plavix, statin Dvt Px, on heparin drip Subjective Date of service: 07/23/19 Principal diagnosis: cp Interval history: Patient seen and examined Improved chest pain, no SOB Blood cx on admission +ve for gm+ve cocci Objective - Exam Narrative Exam: General appearance: NAD, comfortable) HEENT: Positive: PERRL Neck: Positive: neck supple, trachea midline Cardiac: Positive: Reg Rate and Rhythm, S1/S2 Lungs: Positive: Decreased Breath Sounds Neuro: Positive: Grossly Intact Abdomen: Positive: Soft. Negative: Tender Skin: Negative: Rash Incision: Incision Site (sternotomy scar appears c/d/i, well approximated) Musculoskeletal: No Pain Extremities: Absent: edema - Constitutional Vitals: Vital Signs - 12hr 07/23/19 07/23/19 07/23/19 03:00 04:20 07:58 Temperature 98.1 F Pulse Rate 92 H 89 Respiratory 18 Rate Respiratory Rate [Left Chest] Blood Pressure 125/81 118/89 O2 Sat by Pulse 97 Oximetry 07/23/19 07/23/19 07/23/19 08:00 08:09 08:19 Temperature Pulse Rate Respiratory 22 20 Rate Respiratory 20 Rate [Left Chest] Blood Pressure 118/89 O2 Sat by Pulse Oximetry 07/23/19 07/23/19 08:28 10:00 Temperature 98.6 F Pulse Rate Respiratory 22 Rate Respiratory Rate [Left Chest] Blood Pressure O2 Sat by Pulse 97 96 Oximetry - Labs CBC & Chem 7: 07/24/19 06:37 07/24/19 06:37 Labs: Abnormal lab results 07/22/19 07/22/19 Range/Units 13:42 13:42 Heparin Anti-Xa Level < 0.10 L (0.3-0.7) U.I./ml Troponin T 0.081 H D (0.00-0.029) ng/mL
[2019-07-23] MEDS: COLCHICINE PO SCH ×2 (13:39→23:07)
[2019-07-23] MEDS: COREG PO SCH ×2 (13:39→23:07)
[2019-07-23] MEDS: PLAVIX PO SCH (13:40)
[2019-07-23] MEDS: IMDUR PO SCH (13:40)
[2019-07-23] MEDS: PROTONIX PO SCH ×2 (13:40→23:06)
[2019-07-23] MEDS: ZESTRIL PO SCH (17:59)
[2019-07-23] MEDS: VANCOMYCIN 1,250 MG in NACL 0.9% 250ML 250 ML IV SCH (23:06)
[2019-07-24] MEDS: DILAUDID IV PRN ×2 (04:11→08:44)
[2019-07-24] MEDS: NITRO-BID 2% TP SCH (06:19)
[2019-07-24 07:40] LABS: Basophils % (Auto) 0.4 % (0.0-1.8); Eosinophils # (Auto) 0.2 K/mm3 (0.0-0.4); Eosinophils % (Auto) 2.6 % (0.0-4.3); Hematocrit 40.6 % (35.5-45.6); Hemoglobin 13.2 gm/dl (11.8-15.2); Lymphocytes % (Auto) 24.8 % (13.4-35.0); Mean Corpuscular HGB Conc 33 % (32-34); Mean Corpuscular Volume 87 fl (84-94); Monocytes # (Auto) 0.7 K/mm3 (0.0-0.8); Monocytes % (Auto) 8.4 % (0.0-7.3); Platelet Count 232 K/mm3 (140-440); Red Blood Count 4.67 M/mm3 (3.65-5.03); Red Cell Distribution Width 15.6 % (13.2-15.2)
[2019-07-24 07:59] LABS: BUN/Creatinine Ratio 17; Blood Urea Nitrogen 17 mg/dL (9-20); Hemolysis Index 0
[2019-07-24 08:30] VITALS: BP 168/99
[2019-07-24] MEDS: COLCHICINE PO SCH (09:00)
[2019-07-24] MEDS: IMDUR PO SCH (09:00)
[2019-07-24] MEDS: PLAVIX PO SCH (09:01)
[2019-07-24] MEDS: PROCARDIA XL PO SCH (09:01)
[2019-07-24] MEDS: ZESTRIL PO SCH (09:01)
[2019-07-24] MEDS: COREG PO SCH (09:01)
[2019-07-24] MEDS: VANCOMYCIN 1,250 MG in NACL 0.9% 250ML 250 ML IV SCH (09:02)
[2019-07-24] MEDS: PROTONIX PO SCH (09:02)
[2019-07-24] MEDS ORDERED: BABY ASPIRIN PO SCH (10:00)
[2019-07-24] MEDS ORDERED: LASIX PO SCH (10:00)
--- NOTE | 2019-07-24 14:05 | Discharge Summary ---
Providers - Providers Date of Admission: 07/21/19 10:26 Date of discharge: 07/24/19 Attending physician: DAXA SEVILLA 07/21/19 Consult to Cardiac Rehabilitation [CONS] Routine Reason For Exam: Phase I 07/21/19 09:58 Consult to Physician [CONS] Urgent Comment: Dr. Cameron spoke with Osvaldo @ [phone] Consulting Provider: OSVALDO BACA Physician Instructions: Reason For Exam: cp, cabg 1 month ago, trop elevation 07/21/19 10:48 Consult to Physician [CONS] Routine Comment: Dr. Grace saw the patient in the er Consulting Provider: CHAPO GLEASON Physician Instructions: Reason For Exam: chest pain Primary care physician: CRESENCIO ROJAS MD Hospitalization Condition: Stable Hospital course: Discharge diagnosis: bacteremia with staph coag - s/p Vanc, repeat Cx negative - possible contamination NSTEMI type 2, likely - treat with NSTEMI protocol for now with heparin for 48h - cont plavix, statin - cardiology consulted, - Echo reviewed - EF 40-45%, restrictive diastolic filling, mild MR, RVSP 27mmHg. - V/Q scan done today was low prob for PE. - No plans for ischemic evaluation at this time. Acute HFrEF (heart failure with reduced ejection fraction) with pulmonary congestion, POA - repeat cxr today normal, cont current meds, daily wt, ins/os CAD h/o recent CABG - will cont home meds, HTN, cont coreg, nefidipine HLD, cont statin h/o CVA - cont plavix, statin Disposition: TO HOME OR SELFCARE Time spent for discharge: 34 minutes Core Measure Documentation - Palliative Care Palliative Care/ Comfort Measures: Not Applicable - Core Measures Any of the following diagnoses?: history only Exam - Physical Exam Narrative exam: General appearance: NAD, comfortable) HEENT: Positive: PERRL Neck: Positive: neck supple, trachea midline Cardiac: Positive: Reg Rate and Rhythm, S1/S2 Lungs: Positive: Decreased Breath Sounds Neuro: Positive: Grossly Intact Abdomen: Positive: Soft. Negative: Tender Skin: Negative: Rash Incision: Incision Site (sternotomy scar appears c/d/i, well approximated) Musculoskeletal: No Pain Extremities: Absent: edema - Constitutional Vitals: Temp Pulse Resp BP Pulse Ox 98.4 F 87 18 168/99 99 07/24/19 07:33 07/24/19 09:01 07/24/19 07:33 07/24/19 09:01 07/24/19 10:00 Plan Activity: advance as tolerated Weight Bearing Status: Non-Weight Bearing Diet: low fat, low salt Special Instructions: restrict fluid intake to (1.2L per day) Follow up with: CRESENCIO ROJAS MD [Primary Care Provider] - 3-5 Days Prescriptions: Aspirin [Aspirin BABY CHEW TAB] 81 mg PO QDAY #30 tab.chew Furosemide [Lasix TAB] 40 mg PO QDAY #30 tablet oxyCODONE /ACETAMINOPHEN [Percocet 5/325 mg] 1 tab PO Q8H PRN #10 tablet PRN Reason: Pain, Moderate (4-6)
== END 2019-07-24 15:00 | disposition home or self-care (01) | DRG 280 ==
LOC: ED 08:39 → 4A 10:26
PROVIDERS: ADMIT Internal Medicine; ATTEND Internal Medicine
DX: I21.A1 Myocardial infarction type 2 (principal); I50.21 Acute systolic (congestive) heart failure; I24.1 Dressler's syndrome; R78.81 Bacteremia; R07.89 Other chest pain; I11.0 Hypertensive heart disease with heart failure; G47.30 Sleep apnea, unspecified; E78.5 Hyperlipidemia, unspecified; I25.10 Atherosclerotic heart disease of native coronary artery without angina pectoris; E11.9 Type 2 diabetes mellitus without complications; B95.7 Other staphylococcus as the cause of diseases classified elsewhere; Z88.6 Allergy status to analgesic agent; Z88.1 Allergy status to other antibiotic agents; Z95.1 Presence of aortocoronary bypass graft; Z88.5 Allergy status to narcotic agent; Z82.49 Family history of ischemic heart disease and other diseases of the circulatory system; Z86.73 Personal history of transient ischemic attack (TIA), and cerebral infarction without residual deficits; I25.2 Old myocardial infarction; Z91.19 Patient's noncompliance with other medical treatment and regimen
CPT/HCPCS: 36415; 71045; 78582; 80048; 80053; 80061; 84484; 85014; 85018; 85025; 85049; 85379; 85520; 85610; 85730; 87040; 87076; 87116; 87186; 93005; 93010; 93306; 94760; 96365; 96375; G0378; A9270-GY; A9540; A9558; J1170; J1644; J1885; J1940; J1956; J2270; J2405; J3370; J7040; J7050